=== PATIENT | male | born 1990 | race Caucasian/White ===

== ENCOUNTER 2018-01-07 12:37 | Emergency (ER) | payer MEDICAID ==
[2018-01-07] MEDS: KETOROLAC 60 MG INJ IM (14:00)
[2018-01-07] MEDS: ACETAMINOPHEN 500 MG TAB PO (14:00)
[2018-01-07] MEDS: CEFTRIAXONE 1 GM INJ IM (14:14)
[2018-01-07] MEDS: LIDOCAINE 1% (MDV) 20 ML INJ SC (14:14)
== END 2018-01-07 14:29 | disposition home or self-care (01) ==
LOC: FTE 12:37
DX: L03.115 Cellulitis of right lower limb (principal); Z87.891 Personal history of nicotine dependence
CPT/HCPCS: 96372; 99284-25

== ENCOUNTER 2018-07-31 10:48 | Emergency (ER) | payer MEDICAID | END 2018-07-31 13:31 | disposition home or self-care (01) | LOC: FTE 10:48 | DX: G51.0 Bell's palsy (principal); F17.210 Nicotine dependence, cigarettes, uncomplicated | CPT/HCPCS: 99283; Z7502 ==